=== PATIENT | female | born 1955 | race Caucasian/White ===

== ENCOUNTER → 2017-07-06 | Outpatient (CLI) | payer OTHER | LOC: CIMAGING 09:32 | PROVIDERS: ATTEND Family Medicine | DX: Z12.31 Encounter for screening mammogram for malignant neoplasm of breast (principal) | CPT/HCPCS: G0202 ==

== ENCOUNTER 2017-07-23 19:22 | Observation (INO) | payer OTHER ==
[2017-07-23] MEDS ORDERED: methylPREDNISolone SOD SUCC 125 MG/2 ML VIAL IVP ONE (19:36)
[2017-07-23] MEDS ORDERED: RANITIDINE 50 MG/2 ML VIAL IVP ONE (19:36)
[2017-07-23] MEDS ORDERED: NS 100 ML BAG (MINI-BAG) IV ONE (19:39)
--- NOTE | 2017-07-23 20:56 | EDPHY ---
H & P Time Seen by Provider: 07/23/17 19:38 HPI/ROS: HPI Allergic reaction. 62-year-old female by private vehicle with her neighbor. This patient lives alone. She reports that she had shrimp earlier in the evening at 5:30 p.m.. She reports that she went for a walk shortly after this and while walking she states that she started feeling itchy all over followed by shortness of breath and her voice got hoarse. She reports also she developed some hives on her legs and she thinks under neck. She denies any known drug allergies. She reports that she had being bitten by a mosquito earlier in the right knee and thought that may have been the source of her allergy reaction. She denies any sensation of her throat swelling. She denies any difficulty swallowing at this time. She still has a hoarse voice. ROS: Constitutional: No fever, no chills. No weakness. As above. Eyes: No discharge. No changes in vision. ENT: No sore throat. No nasal congestion or rhinorrhea. Voice changes as noted. Respiratory: No cough. As above. Cardiac: No chest pain, no palpitations. Gastrointestinal: No abdominal pain, no vomiting, no diarrhea. Genitourinary: No hematuria. No dysuria or increased frequency with urination. Musculoskeletal: No back pain. No neck pain. No myalgias or arthralgias. Skin: As above. Neurological: No headache. No focal weakness or altered sensation. Past medical history: Hypothyroidism, hyperlipidemia, type 2 diabetes. Primary care is through [facility]. Social history: Nonsmoker. Lives by herself. No alcohol. Here with her neighbor. Physical Exam: General Appearance: Alert, no distress. This patient is responding to questions appropriately and in full sentences. This patient appears well- hydrated and well-nourished. Eyes: Pupils equal and round no pallor or injection. No lid edema, erythema or injection. ENT, Mouth: Mucous membranes are moist. The pharyngeal tissues are unremarkable. No edema or swelling. No asymmetry suggestive of abscess. No erythema or exudates. No stridor on auscultation of her neck. She has a raspy hoarse voice. Respiratory: There are no retractions, lungs are clear to auscultation with good air movement bilaterally. Cardiovascular: Regular rate and rhythm. No murmur. Gastrointestinal: Abdomen is soft and nontender, no masses, bowel sounds normal. No focal tenderness at McBurney's point. No Tariq sign. Neurological: Motor sensory function is grossly intact. Cranial nerves are normal. Gait is normal. Skin: Warm and dry, no hives or rashes appreciated. Musculoskeletal: Neck is supple and nontender. Extremities are symmetrical. All joints range without pain or impingement. Psychiatric: No agitation. No depression. Database: EKG: Imaging: Procedures: Emergency department course: Vital signs reviewed and are normal. IV placed. She was placed on a surveillance monitor. She was given 0.3 mL of 1-1000 epinephrine, 50 mg of IV ranitidine, 50 mg of IV Benadryl and 125 mg of IV Solu-Medrol. She has been on a monitor with a narrow complex sinus rhythm throughout her emergency department stay. Her vital signs have remained stable. We have watched her closely. 8:50 p.m., patient re-evaluated. She states that she feels drowsy but better. Not as itchy. She has no rashes on repeat exam. Her pharynx is clear and without edema or other abnormalities. She still has a raspy hoarse voice. No stridor however on auscultation of her neck. Plan at this time will be to admit her to our hospitalist service for observation overnight. She endorses. 8:55 p.m., spoke with on-call hospitalist Dr. Atul Fisher. Case discussed with him in detail. He accepts this patient for admission. 9:45 p.m., patient remained stable. Vital signs are normal. Handling secretions and swallowing well. Still has a hoarse raspy voice. Patient transferred by ambulance to [facility] in stable condition. Differential Diagnosis: The differential diagnosis on this patient includes but is not limited to allergic reaction, anaphylaxis, anaphylactoid reaction. This represents a partial list of diagnoses considered. These considerations are based on history , physical exam, past history, reassessment and diagnostic testing. Smoking Status: Never smoked Constitutional: Initial Vital Signs Temperature (C) 36.8 C 07/23/17 19:51 Heart Rate 97 07/23/17 19:51 Respiratory Rate 20 07/23/17 19:51 Blood Pressure 133/56 H 07/23/17 19:51 O2 Sat (%) 95 07/23/17 19:51 O2 Delivery Mode Room Air Allergies/Adverse Reactions: Penicillins Allergy (Verified 07/23/17 19:33) Sulfa (Sulfonamide Antibiotics) Allergy (Verified 07/23/17 19:33) Home Medications: Medication Instructions Recorded Levothyroxine Sodium [Synthroid] 07/23/17 SIMVASTATIN 07/23/17 Medical Decision Making - Data Points Laboratory Results: Laboratory Results 07/23/17 19:45 07/23/17 19:45 07/23/17 07/23/17 19:45 19:45 WBC 6.61 10^3/uL 10^3/uL (3.80-9.50) RBC 4.55 10^6/uL 10^6/uL (4.18-5.33) Hgb 13.8 g/dL g/dL (12.6-16.3) Hct 40.4 % % (38.0-47.0) MCV 88.8 fL fL (81.5-99.8) MCH 30.3 pg pg (27.9-34.1) MCHC 34.2 g/dL g/dL (32.4-36.7) RDW 13.3 % % (11.5-15.2) Plt Count 348 10^3/uL 10^3/uL (150-400) MPV 9.8 fL fL (8.7-11.7) Neut % (Auto) 57.7 % % (39.3-74.2) Lymph % (Auto) 31.0 % % (15.0-45.0) [place] % (Auto) 7.9 % % (4.5-13.0) Eos % (Auto) 2.3 % % (0.6-7.6) Baso % (Auto) 0.8 % % (0.3-1.7) Nucleat RBC Rel Count 0.0 % % (0.0-0.2) Absolute Neuts (auto) 3.82 10^3/uL 10^3/uL (1.70-6.50) Absolute Lymphs (auto) 2.05 10^3/uL 10^3/uL (1.00-3.00) Absolute Monos (auto) 0.52 10^3/uL 10^3/uL (0.30-0.80) Absolute Eos (auto) 0.15 10^3/uL 10^3/uL (0.03-0.40) Absolute Basos (auto) 0.05 10^3/uL 10^3/uL (0.02-0.10) Absolute Nucleated RBC 0.00 10^3/uL 10^3/uL (0-0.01) Immature Gran % 0.3 % % (0.0-1.1) Immature Gran # 0.02 10^3/uL 10^3/uL (0.00-0.10) Sodium 138 mEq/L mEq/L (134-144) Potassium 4.3 mEq/L mEq/L (3.5-5.2) Chloride 102 mEq/L mEq/L (97-110) Carbon Dioxide 24 mEq/l mEq/l (22-31) Anion Gap 12 mEq/L mEq/L (8-16) BUN 22 mg/dL mg/dL (7-23) Creatinine 0.7 mg/dL mg/dL (0.6-1.0) Estimated GFR > 60 Glucose 144 mg/dL H mg/dL (70-100) Calcium 9.5 mg/dL mg/dL (8.5-10.4) Medications Given: Discontinued Medications Diphenhydramine HCl (Benadryl Injection) 50 mg IVP EDNOW ONE Stop: 07/23/17 19:38 Last Admin: 07/23/17 19:43 Dose: 50 mg Epinephrine HCl (Epinephrine) 0.3 mg IM EDNOW ONE Stop: 07/23/17 19:38 Last Admin: 07/23/17 19:47 Dose: 0.3 mg Methylprednisolone Sodium Succinate (Solu-Medrol) 125 mg IVP EDNOW ONE Stop: 07/23/17 19:37 Last Admin: 07/23/17 19:41 Dose: 125 mg Ranitidine HCl (Zantac) 50 mg IVP EDNOW ONE Stop: 07/23/17 19:37 Last Admin: 07/23/17 19:45 Dose: 50 mg Departure - Departure Disposition: [facility] Acute Clinical Impression: Allergic reaction, Laryngitis
[2017-07-23 21:19] LABS: % IMMATURE GRANULYOCYTES 0.3 % (0.0-1.1); ABSOLUTE IMMATURE GRANULOCYTES 0.02 10^3/uL (0.00-0.10); ADD DIFF? NO; ADD MORPH? NO; ADD SCAN? NO; ATYPICAL LYMPHOCYTE FLAG 10 (0-99); FRAGMENT RBC FLAG 0 (0-99); HEMATOCRIT 40.4 % (38.0-47.0); HEMOGLOBIN 13.8 g/dL (12.6-16.3); LEFT SHIFT FLG 0 (0-99); LIPEMIA HEMOLYSIS FLAG 90 (0-99); MEAN CELL HEMOGLOBIN 30.3 pg (27.9-34.1); MEAN CELL HEMOGLOBIN CONCENTR. 34.2 g/dL (32.4-36.7); MEAN CELL VOLUME 88.8 fL (81.5-99.8); MEAN PLATELET VOLUME 9.8 fL (8.7-11.7); PLATELET CLUMPS FLAG 10 (0-99); PLATELET COUNT 348 10^3/uL (150-400); RED BLOOD CELL COUNT 4.55 10^6/uL (4.18-5.33); RED CELL DISTRIBUTION WIDTH 13.3 % (11.5-15.2)
[2017-07-23 21:24] LABS: ANION GAP 12 mEq/L (8-16); CALCIUM 9.5 mg/dL (8.5-10.4); CARBON DIOXIDE 24 mEq/l (22-31); CHLORIDE 102 mEq/L (97-110); CREATININE 0.7 mg/dL (0.6-1.0); GLOMERULAR FILTRATION RATE > 60; GLUCOSE 144 mg/dL (70-100); POTASSIUM 4.3 mEq/L (3.5-5.2); SODIUM 138 mEq/L (134-144)
[2017-07-24] MEDS ORDERED: ONDANSETRON 4 MG/2 ML VIAL IVP PRN (00:16)
[2017-07-24] MEDS ORDERED: ONDANSETRON DISINTEGRATING 4 MG TAB PO PRN (00:16)
[2017-07-24] MEDS ORDERED: ACETAMINOPHEN 325 MG TAB PO PRN (00:16)
[2017-07-24 04:26] VITALS: RESP 16
--- NOTE | 2017-07-24 05:28 | GHP ---
[f rep st] HISTORY AND PHYSICAL DATE OF ADMISSION: 07/23/2017 CHIEF COMPLAINT: Hives and throat swelling. HISTORY OF PRESENT ILLNESS: This is a 62-year-old female with a history of type 2 diabetes but othe rwise healthy, who ate some shrimp for dinner tonight. She then went on a walk and developed hives, itchy, erythematous skin and then felt itching in her throat and a change in her voice. She came t o the emergency room and was given epinephrine, Solu-Medrol, H2 renato. She is being admitted for observation overnight. She states that she feels a lot better currently. She denies any shortness of breath or wheezing. She ate shrimp before but it was a long time ago and has had no reactions. She does not usually get allergic reactions. She also had a mosquito bite, thinks that might have c aused as well. REVIEW OF SYSTEMS: A 10-point review of systems was obtained and was negative. PAST MEDICAL HISTORY: 1. Hypothyroidism. 2. Type 2 diabetes secondary to hyperlipidemia. SOCIAL HISTORY: No smoking or alcohol. FAMILY HISTORY: No history of excessive allergies. PHYSICAL EXAM: VITAL SIGNS: Afebrile, blood pressure is 136/79, heart rate 93, oxygen saturation 9 3% on room air. GENERAL: The patient is well developed, no apparent distress. HEENT: Nonicteric sclerae. Extraocular movements intact. Tongue is a little bit swollen but airway is open. No stri cas. LUNGS: Good effort. Clear to auscultation. No wheezing. CARDIOVASCULAR: Regular rate and rhythm. No murmurs, gallops. ABDOMEN: Positive bowel sounds, soft, nontender, nondistended. No h epatosplenomegaly. EXTREMITIES: No clubbing, cyanosis, or edema. SKIN: Without rash, warm, dry, intact. NEUROLOGIC: Alert and oriented x3. Moving all 4 extremities equally. PSYCHIATRIC: Asiya l affect. LABS: CBC is normal. Chemistries normal. ASSESSMENT: This is a 62-year-old female presenting with allergic reaction to shrimp. PLAN: Patient to be admitted under observation. I am not going to give her any more medications. If she continues to do well, she can be discharged tomorrow. /[id number]/MODL
[2017-07-24] MEDS ORDERED: PNEUMOCOCCAL 0.5ML VACCINE VIAL IM ONE (07:49)
[2017-07-24 08:41] VITALS: BP 124/86; PULSE 94; TEMP 97.7; O2SAT 93
[2017-07-24] MEDS ORDERED: LEVOTHYROXINE 125 MCG TAB PO SCH (08:45)
[2017-07-24] MEDS ORDERED: [UNRECOGNIZED DRUG - OTHER] PO SCH (09:00)
[2017-07-24] MEDS ORDERED: METFORMIN HCL PO SCH (09:00)
[2017-07-24] MEDS ORDERED: PIOGLITAZONE HCL 15 MG TAB PO SCH (09:00)
[2017-07-24] MEDS ORDERED: Phentermine Hcl [Adipex-P] 37.5 MG PO SCH (09:00)
[2017-07-24] MEDS ORDERED: metFORMIN HCL 850 MG TAB PO SCH (09:00)
[2017-07-24] MEDS ORDERED: PIOGLITAZONE HCL PO SCH (09:00)
[2017-07-24] MEDS ORDERED: PHENTERMINE HCL 37.5 MG PO SCH (09:00)
--- NOTE | 2017-07-24 11:54 | GDS ---
[f rep st] DISCHARGE SUMMARY DISCHARGE DIAGNOSIS: Hives. PHYSICAL EXAMINATION: GENERAL: The patient is alert. VITAL SIGNS: Afebrile at 36.5, pulse 94, re spiratory rate 16, blood pressure 124/86. She is saturating 93% on room air. HOSPITAL COURSE: The patient is a 62-year-old female who presented to the hospital after developing hives with some complaints of throat swelling. This was presumably an allergic reactions secondary to shrimp. However, the patient has never been allergic to shrimp or shellfish prior in her life. She was treated with epinephrine, as well as Solu-Medrol and an H2 renato. Her symptoms completel y resolved. She feels 100% better today. She is back to her normal state of health. I have recomm ended that she follow up with an surface supply breathing apparatus in the outpatient setting and refrain from shellfish unti l she has seen an surface supply breathing apparatus. She is in agreement with this plan. She will return to the emergency room if she develops any further signs or symptoms of allergic reaction or complication. There are no pending studies. DISCHARGE MEDICATIONS: Please refer to the EMR form. No prescriptions have been provided at the me of disposition. /[id number]/MODL
[2017-07-24] MEDS ORDERED: NON-FORMULARY NEW DRUG (Simvastatin [Zocor] 20 MG) PO SCH (21:00)
[2017-07-24] MEDS ORDERED: ATORVASTATIN CALCIUM 10 MG TAB PO SCH (21:00)
== END 2017-07-24 10:46 | disposition home or self-care (01) ==
LOC: CED 19:22 → CEDHOLD 20:46 → F3E 22:40
PROVIDERS: ADMIT Internal Medicine; ATTEND Internal Medicine
DX: L50.0 Allergic urticaria (principal)
CPT/HCPCS: 90471; G0378; 80048-PO; 85025-PO; 96374; G0009; J0171; J1200; J2780

== ENCOUNTER → 2019-05-02 | Outpatient (CLI) | payer OTHER | LOC: EMCIMAGING 08:25 ==